=== PATIENT | male | born 1980 | race Caucasian/White ===

== ENCOUNTER 2018-11-04 22:22 | Observation (INO) ==
[2018-11-05] MEDS ORDERED: *HR* HYDROmorphone (PF) 1 MG/ML SYRINGE IVP ONE (01:43)
[2018-11-05] MEDS ORDERED: Ondansetron 4 MG/2 ML VIAL IVP ONE ×2 (01:43→04:47)
[2018-11-05] MEDS ORDERED: 0.9 % Sodium Chloride 1,000 ML IVC ONE (01:44)
[2018-11-05] MEDS ORDERED: Isovue-370 500 ML BOTTLE IVP ONE (01:58)
[2018-11-05 02:39] LABS: Basophils % 0.2 %; Eosinophils # 0.1 K/mcL (0.0-0.6); Eosinophils % 0.6 %; Hematocrit 41.1 % (37.5-50.1); Hemoglobin 13.7 g/dL (12.9-16.9); Immature Granulocytes % 0.2 % (0-4); Lymphocytes # 2.1 K/mcL (0.6-4.6); Lymphocytes % 19.8 %; Mean Corpuscular HGB Conc 33.3 g/dL (31.6-35.5); Mean Corpuscular Hemoglobin 30.4 pg (28.0-33.3); Mean Corpuscular Volume 91.1 fL (83.0-100.0); Mean Platelet Volume 9.9 fL (9.4-12.4); Monocytes # 0.7 K/mcL (0.0-1.3); Monocytes % 6.9 %; Neutrophils # 7.5 K/mcL (1.6-8.9); Platelet Count 236 K/mcL (140-400); Red Blood Count 4.51 M/mcL (4.19-5.50); Red Cell Distribution Width 12.6 % (11.5-14.5); Segmented Neutrophils % 72.3 %; White Blood Count 10.4 K/mcL (4.3-11.1)
[2018-11-05 02:47] LABS: INR 1.2; Prothrombin Time 13.2 Seconds (9.4-12.1)
[2018-11-05 02:59] LABS: Alanine Aminotransferase 21 Units/L (7-52); Albumin 3.7 g/dL (3.5-5.7); Albumin/Globulin Ratio 1.5 (1.1-2.2); Alkaline Phosphatase 53 Units/L (34-104); Amylase 48 Units/L (29-103); Aspartate Amino Transferase 18 Units/L (13-39); BUN/Creatinine Ratio 17 (6-26); Bilirubin,Direct 0.1 mg/dL (0.0-0.2); Bilirubin,Indirect 0.5 mg/dL (0.0-1.2); Bilirubin,Total 0.6 mg/dL (0.3-1.0); Blood Urea Nitrogen 15 mg/dL (6-20); Calcium 8.4 mg/dL (8.6-10.3); Carbon Dioxide 28 mEq/L (23-29); Chloride 103 mEq/L (98-107); Globulin 2.5 g/dL (2.4-3.5); Glucose 110 mg/dL (70-105); Lipase 18 Units/L (11-82); Osmolality,Calculated 287 (280-300); Potassium 3.7 mEq/L (3.5-5.1); Sodium 138 mEq/L (136-145); Total Protein 6.2 g/dL (6.4-8.9); eGFR For African Americans > 60 (> 60); eGFR For Non-African Americans > 60 (> 60)
--- NOTE | 2018-11-05 04:26 | Emergency Department Note ---
Disposition Clinical Impression: Diverticulitis Disposition: Admitted As Inpatient Condition: Good Referrals: NONE,PCP [Primary Care Provider] - Forms: ED Satisfaction Letter Time of Disposition: 04:48 Abdominal Pain HPI - General Chief Complaint: ED Nausea/Vomiting/Diarrhea Stated Complaint: NV/S/P hernia sx today sent by Dr. Walters Time Seen by Provider: 11/05/18 01:40 Source: patient Mode of arrival: ambulatory Limitations: no limitations Nursing Notes Reviewed: Yes Vital Signs Reviewed: Yes - History of Present Illness HPI Narrative: Alert and oriented nontoxic-appearing 30-year-old male presents for evaluation of a sudden onset of diffuse abdominal pain/cramping and nausea/vomiting. The patient underwent a umbilical hernia repair by Dr. Rendon yesterday morning. He states that yesterday afternoon/early evening, he began to notice abdominal discomfort. Pain worsened throughout the evening into this morning. He c ontacted Dr. Walters and was told to present to the emergency department for further evaluation. He denies any fever or chills. He has not yet had a bowel movement status post surgery. Pt Subjective Complaint: abdominal pain Onset (ago): hour(s) Consistency: Worsening Location: diffuse Pain Severity: severe Pain Scale: 10 Quality: aching Radiation: none Migration to: no migration Improves with: nothing Worsens with: nothing Context: recent surgery/procedure Associated symptoms: Reports: nausea, vomiting. Denies: diarrhea, fever, chills, hematochezia, melena, hematuria Treatments prior to arrival: none - Related Data Home Medications Medication Instructions Recorded Confirmed Oxycodone HCl/Acetaminophen 1 tab PO Q8H PRN 11/04/18 11/04/18 [Percocet 5-325 mg Tablet] Previous Rx's Medication Instructions Recorded Acetaminophen [Tylenol] 1,000 mg PO Q6HR 7 Days #60 tablet 11/04/18 Ibuprofen [Ibu] 800 mg PO 1-3XD 7 Days #30 tablet 11/04/18 Allergies Allergy/AdvReac Type Severity Reaction Status Date / Time atomoxetine AdvReac URINARY Verified 11/04/18 22:39 RETENTION bupropion AdvReac Confusion Verified 11/04/18 22:39 prednisone AdvReac Irritable Verified 11/04/18 22:39 All systems ED: reviewed and negative except as stated. Review of Systems: As Per HPI Constitutional: Denies: fever, chills, weakness, weight change Eyes: Denies: eye pain, eye discharge, vision change ENT ED: Denies: ear pain, throat pain, dental pain, hearing loss, epistaxis, congestion, dysphagia Cardiovascular: Denies: chest pain, palpitations, dyspnea on exertion, edema, syncope Respiratory: Denies: cough, dyspnea, wheezes, hemoptysis, stridor Gastrointestinal: Reports: as per HPI, abdominal pain, nausea, vomiting. Denies: diarrhea, constipation, hematemesis, melena, hematochezia Genitourinary: Denies: urgency, dysuria, frequency, hematuria Musculoskeletal: Denies: back pain, neck pain, arthralgia, myalgia Integumentary: Denies: rash, abrasion, lesions Neurological: Denies: headache, weakness, numbness, paresthesias, confusion, abnormal gait, vertigo Psychiatric: Denies: anxiety, depression, suicidal thoughts, homicidal thoughts, auditory hallucinations, visual hallucinations Endocrine: Denies: fatigue Hematological/Lymphatic: Denies: easy bleeding, easy bruising Allergic/Immunologic: Denies: facial swelling, urticaria Abdominal Pain PMH - Past Medical History Medical history: Reports: other Male Surgical History: Reports: cholecystectomy, herniorrhaphy, orthopedic, other, other Psychiatric history: Reports: anxiety - Social History Smoking status: Never smoker Alcohol use: Reports: occasionally Drug use: Reports: none Physical Exam - General Limitations: no limitations General appearance: alert - Head Head exam: atraumatic, normocephalic, normal inspection - Eye Eye exam: Present: normal appearance. Absent: conjunctival injection - ENT ENT exam: mucous membranes moist - Neck Neck exam: Present: normal inspection, full ROM - Chest Chest inspection: Present: normal inspection, symmetric chest wall rise - Respiratory Respiratory exam: Present: normal lung sounds bilaterally. Absent: respiratory distress, wheezes, stridor, accessory muscle use, prolonged expiratory phase - Cardiovascular Cardiovascular exam: Present: regular rate, normal rhythm, normal heart sounds - Abdominal Exam Abdominal exam: Present: soft, tenderness, normal bowel sounds, incision (Multiple laparoscopic incisions noted. Wounds are well approximated. No discharge or drainage. No associated erythema.). Absent: distention, guarding, rebound, rigidity Abdominal tenderness: Present: diffuse, moderate - Extremities Exam Extremities exam: Present: normal inspection, full ROM - Neurological Exam Neurological exam: Present: alert, oriented X3, normal gait - Psychiatric Psychiatric exam: Present: normal affect, normal mood - Skin Skin exam: Present: warm, dry Course Course Narrative: 0440: I spoke with Dr. Walters, general surgeon plumbing contractor. I have discussed the patient's case, presentation, and laboratory/radiology workup with him. He states that the patient does not need an NG tube however he requested patient be admitted to surgery services and began on IV Zosyn. - Reevaluation(s) Reevaluation #1: The patient states pain is significantly improved. He denies any need for additional analgesia. He does state that he is still slightly nauseated. He is in agreement with admission to the surgical services for observation and IV an tibiotics. Time: 04:47 Vital Signs Temperature 98.2 F 11/04/18 22:40 Pulse Rate 110 11/04/18 22:40 Respiratory Rate 11/04/18 22:40 Blood Pressure 144/80 11/04/18 22:40 O2 Sat by Pulse Oximetry 98 11/04/18 22:40 Temperature 98.2 F 11/04/18 22:40 Pulse Rate 110 11/04/18 22:40 Respiratory Rate 11/04/18 22:40 Blood Pressure 144/80 11/04/18 22:40 O2 Sat by Pulse Oximetry 98 11/04/18 22:40 Oxygen Delivery Oxygen Delivery Room Air Abdominal Pain - Medical Records Medical records reviewed: Yes I reviewed the patient's medical records. - Lab Data Lab results reviewed: Yes I reviewed the patient's lab results. Lab results narrative: Lab Results 11/05/18 11/05/18 11/05/18 Range/Units 02:26 02:26 02:26 WBC 10.4 (4.3-11.1) K/mcL RBC 4.51 (4.19-5.50) M/mcL Hgb 13.7 (12.9-16.9) g/dL Hct 41.1 (37.5-50.1) % MCV 91.1 (83.0-100.0) fL MCH 30.4 (28.0-33.3) pg MCHC 33.3 (31.6-35.5) g/dL RDW 12.6 (11.5-14.5) % Plt Count 236 (140-400) K/mcL MPV 9.9 (9.4-12.4) fL Immature Gran % 0.2 (0-4) % Seg Neutrophils % 72.3 % Lymphocytes % 19.8 % Monocytes % 6.9 % Eosinophils % 0.6 % Basophils % 0.2 % Neutrophils # 7.5 (1.6-8.9) K/mcL Lymphocytes # 2.1 (0.6-4.6) K/mcL Monocytes # 0.7 (0.0-1.3) K/mcL Eosinophils # 0.1 (0.0-0.6) K/mcL Basophils # 0.0 (0.0-0.2) K/mcL PT 13.2 H (9.4-12.1) Seconds INR 1.2 APTT 31.0 (26.0-36.0) Seconds Sodium 138 (136-145) mEq/L Potassium 3.7 (3.5-5.1) mEq/L Chloride 103 (98-107) mEq/L Carbon Dioxide 28 (23-29) mEq/L BUN 15 (6-20) mg/dL Creatinine 0.89 (0.70-1.30) mg/dL Est GFR ( Amer) > 60 (> 60) Est GFR (Non-Af Amer) > 60 (> 60) BUN/Creatinine Ratio 17 (6-26) Glucose 110 H (70-105) mg/dL Calculated Osmolality 287 (280-300) Lactic Acid (0.5-2.2) mmol/L Calcium 8.4 L (8.6-10.3) mg/dL Total Bilirubin 0.6 (0.3-1.0) mg/dL Direct Bilirubin 0.1 (0.0-0.2) mg/dL Indirect Bilirubin 0.5 (0.0-1.2) mg/dL AST 18 (13-39) Units/L ALT 21 (7-52) Units/L Alkaline Phosphatase 53 (34-104) Units/L Serum Total Protein 6.2 L (6.4-8.9) g/dL Albumin 3.7 (3.5-5.7) g/dL Globulin 2.5 (2.4-3.5) g/dL Albumin/Globulin Ratio 1.5 (1.1-2.2) Amylase 48 (29-103) Units/L Lipase 18 (11-82) Units/L 11/05/18 Range/Units 02:26 WBC (4.3-11.1) K/mcL RBC (4.19-5.50) M/mcL Hgb (12.9-16.9) g/dL Hct (37.5-50.1) % MCV (83.0-100.0) fL MCH (28.0-33.3) pg MCHC (31.6-35.5) g/dL RDW (11.5-14.5) % Plt Count (140-400) K/mcL MPV (9.4-12.4) fL Immature Gran % (0-4) % Seg Neutrophils % % Lymphocytes % % Monocytes % % Eosinophils % % Basophils % % Neutrophils # (1.6-8.9) K/mcL Lymphocytes # (0.6-4.6) K/mcL Monocytes # (0.0-1.3) K/mcL Eosinophils # (0.0-0.6) K/mcL Basophils # (0.0-0.2) K/mcL PT (9.4-12.1) Seconds INR APTT (26.0-36.0) Seconds Sodium (136-145) mEq/L Potassium (3.5-5.1) mEq/L Chloride (98-107) mEq/L Carbon Dioxide (23-29) mEq/L BUN (6-20) mg/dL Creatinine (0.70-1.30) mg/dL Est GFR ( Amer) (> 60) Est GFR (Non-Af Amer) (> 60) BUN/Creatinine Ratio (6-26) Glucose (70-105) mg/dL Calculated Osmolality (280-300) Lactic Acid 0.8 (0.5-2.2) mmol/L Calcium (8.6-10.3) mg/dL Total Bilirubin (0.3-1.0) mg/dL Direct Bilirubin (0.0-0.2) mg/dL Indirect Bilirubin (0.0-1.2) mg/dL AST (13-39) Units/L ALT (7-52) Units/L Alkaline Phosphatase (34-104) Units/L Serum Total Protein (6.4-8.9) g/dL Albumin (3.5-5.7) g/dL Globulin (2.4-3.5) g/dL Albumin/Globulin Ratio (1.1-2.2) Amylase (29-103) Units/L Lipase (11-82) Units/L Result diagrams: 11/05/18 02:26 11/05/18 02:26 Lab Results 11/05/18 11/05/18 11/05/18 Range/Units 02:26 02:26 02:26 WBC 10.4 (4.3-11.1) K/mcL RBC 4.51 (4.19-5.50) M/mcL Hgb 13.7 (12.9-16.9) g/dL Hct 41.1 (37.5-50.1) % MCV 91.1 (83.0-100.0) fL MCH 30.4 (28.0-33.3) pg MCHC 33.3 (31.6-35.5) g/dL RDW 12.6 (11.5-14.5) % Plt Count 236 (140-400) K/mcL MPV 9.9 (9.4-12.4) fL Immature Gran % 0.2 (0-4) % Seg Neutrophils % 72.3 % Lymphocytes % 19.8 % Monocytes % 6.9 % Eosinophils % 0.6 % Basophils % 0.2 % Neutrophils # 7.5 (1.6-8.9) K/mcL Lymphocytes # 2.1 (0.6-4.6) K/mcL Monocytes # 0.7 (0.0-1.3) K/mcL Eosinophils # 0.1 (0.0-0.6) K/mcL Basophils # 0.0 (0.0-0.2) K/mcL PT 13.2 H (9.4-12.1) Seconds INR 1.2 APTT 31.0 (26.0-36.0) Seconds Sodium 138 (136-145) mEq/L Potassium 3.7 (3.5-5.1) mEq/L Chloride 103 (98-107) mEq/L Carbon Dioxide 28 (23-29) mEq/L BUN 15 (6-20) mg/dL Creatinine 0.89 (0.70-1.30) mg/dL Est GFR ( Amer) > 60 (> 60) Est GFR (Non-Af Amer) > 60 (> 60) BUN/Creatinine Ratio 17 (6-26) Glucose 110 H (70-105) mg/dL Calculated Osmolality 287 (280-300) Lactic Acid (0.5-2.2) mmol/L Calcium 8.4 L (8.6-10.3) mg/dL Total Bilirubin 0.6 (0.3-1.0) mg/dL Direct Bilirubin 0.1 (0.0-0.2) mg/dL Indirect Bilirubin 0.5 (0.0-1.2) mg/dL AST 18 (13-39) Units/L ALT 21 (7-52) Units/L Alkaline Phosphatase 53 (34-104) Units/L Serum Total Protein 6.2 L (6.4-8.9) g/dL Albumin 3.7 (3.5-5.7) g/dL Globulin 2.5 (2.4-3.5) g/dL Albumin/Globulin Ratio 1.5 (1.1-2.2) Amylase 48 (29-103) Units/L Lipase 18 (11-82) Units/L 11/05/18 Range/Units 02:26 WBC (4.3-11.1) K/mcL RBC (4.19-5.50) M/mcL Hgb (12.9-16.9) g/dL Hct (37.5-50.1) % MCV (83.0-100.0) fL MCH (28.0-33.3) pg MCHC (31.6-35.5) g/dL RDW (11.5-14.5) % Plt Count (140-400) K/mcL MPV (9.4-12.4) fL Immature Gran % (0-4) % Seg Neutrophils % % Lymphocytes % % Monocytes % % Eosinophils % % Basophils % % Neutrophils # (1.6-8.9) K/mcL Lymphocytes # (0.6-4.6) K/mcL Monocytes # (0.0-1.3) K/mcL Eosinophils # (0.0-0.6) K/mcL Basophils # (0.0-0.2) K/mcL PT (9.4-12.1) Seconds INR APTT (26.0-36.0) Seconds Sodium (136-145) mEq/L Potassium (3.5-5.1) mEq/L Chloride (98-107) mEq/L Carbon Dioxide (23-29) mEq/L BUN (6-20) mg/dL Creatinine (0.70-1.30) mg/dL Est GFR ( Amer) (> 60) Est GFR (Non-Af Amer) (> 60) BUN/Creatinine Ratio (6-26) Glucose (70-105) mg/dL Calculated Osmolality (280-300) Lactic Acid 0.8 (0.5-2.2) mmol/L Calcium (8.6-10.3) mg/dL Total Bilirubin (0.3-1.0) mg/dL Direct Bilirubin (0.0-0.2) mg/dL Indirect Bilirubin (0.0-1.2) mg/dL AST (13-39) Units/L ALT (7-52) Units/L Alkaline Phosphatase (34-104) Units/L Serum Total Protein (6.4-8.9) g/dL Albumin (3.5-5.7) g/dL Globulin (2.4-3.5) g/dL Albumin/Globulin Ratio (1.1-2.2) Amylase (29-103) Units/L Lipase (11-82) Units/L - Radiology Data Radiology results reviewed: Yes I reviewed the patient's radiology results. Abdomen/Pelvis CT 11/05/18 04:07 IMPRESSION: Short-segment non perforated acute diverticulitis along the proximal sigmoid colon. Expected postsurgical changes following umbilical hernia repair, as detailed above. No intra-abdominal or superficial soft tissue abscess. Fluid-filled distended stomach and esophagus. Consider nasogastric tube decompression. D/ / Antonio Molina / Antonio Molina Interpreting Provider: Antonio Molina
[2018-11-05] MEDS ORDERED: Piperacillin/Tazobactam 3.375 GM in 0.9 % Sodium Chloride Mini Bag 100 ML IVPB ONE (04:46)
[2018-11-05] MEDS ORDERED: Ondansetron 4 MG/2 ML VIAL IVP PRN (05:09)
[2018-11-05] MEDS: 0.9 % Sodium Chloride 1,000 ML IVC SCH ×2 (07:57→18:01)
[2018-11-05] MEDS: Pantoprazole 40 MG VIAL IVP SCH (07:57)
[2018-11-05] MEDS: *HR* Heparin 5,000 UNIT/ML VIAL SQ SCH ×2 (07:57→18:01)
--- NOTE | 2018-11-05 09:53 | Acute Care Surgery H&P ---
Date of Encounter: 11/05/18 Time of Encounter: 09:51 Assessment and Plan (1) Diverticulitis Current Visit: Yes Status: Acute The assessment and plan as outlined above was discussed with the patient and/or family members who expressed understanding and agreement. All questions were answered. I explained to the patient that I do think it would be appropriate for us to continue with IV antibiotics and IV fluids. Will start full liquid diet and at least give him a 24-hour period of IV antibiotics. If he continues to do well we will further advance his diet consider and discharge home. History of Present Illness Chief complaint: Abdominal pain. Nausea and vomiting HPI: Mr. Linares is a 38 year old male who is status post a robotic umbilical hernia repair performed yesterday by Dr. Rendon who was discharged from the PACU yesterday who states that yesterday evening he started to have increasing abdominal pain with nausea and vomiting. Because of his intractable nausea vomiting symptoms he presented to the emergency room and was evaluated by CT scan which suggested a running consistent with his recent surgical procedure as well as likely inflammation around the sigmoid colon consistent with diverticulitis. Currently states that after being admitted and given medication he is no longer having any nausea symptoms. He does admit to some lower abdominal pain and periumbilical pain. Past Med Surg Social Fam HX - Past Medical History Medical history: other Additional medical history: diverticulosis. spleen issues Psychiatric history: anxiety - Past Surgical History Surgical History: cholecystectomy, orthopedic, other Additional surgical history: hiatal hernia repair - Social History Smoking Status: Never smoker Smokeless Tobacco Status: No Alcohol use: occasionally Drug use: none - Family History Mother History Unknown: Yes Father History Unknown: Yes Living Status: Still Living Medications and Allergies Ibuprofen [Ibu] 800 mg PO 1-3XD 7 Days #30 tablet 11/04/18 [Rx] Omeprazole [PriLOSEC] 20 mg PO DAILY 11/05/18 [History] Allergy/AdvReac Type Severity Reaction Status Date / Time atomoxetine AdvReac URINARY Verified 11/04/18 22:39 RETENTION bupropion AdvReac Confusion Verified 11/04/18 22:39 prednisone AdvReac Irritable Verified 11/04/18 22:39 Review of Systems All systems PM: reviewed and no additional remarkable complaints except as stated All systems PM: The remainder of the systems were reviewed and are negative General Surgery Exam Initial Vital Signs Temp Pulse Resp BP Pulse Ox 98.2 F 110 20 144/80 98 11/04/18 22:40 11/04/18 22:40 11/04/18 22:40 11/04/18 22:40 11/04/18 22:40 - General physical appearance well nourished, no distress - Respiratory normal expansion - Abdomen Abdomen general surgery: Present: bowel sounds present, soft, tender (Noted tenderness along the periumbilical and lower abdominal region) Results - Labs 11/05/18 02:26 11/05/18 02:26 Abnormal lab results PT 13.2 Seconds (9.4-12.1) H 11/05/18 02:26 Glucose 110 mg/dL (70-105) H 11/05/18 02:26 Calcium 8.4 mg/dL (8.6-10.3) L 11/05/18 02:26 Serum Total Protein 6.2 g/dL (6.4-8.9) L 11/05/18 02:26 Diabetes panel 11/05/18 Range/Units 02:26 Sodium 138 (136-145) mEq/L Potassium 3.7 (3.5-5.1) mEq/L Chloride 103 (98-107) mEq/L Carbon Dioxide 28 (23-29) mEq/L BUN 15 (6-20) mg/dL Creatinine 0.89 (0.70-1.30) mg/dL Glucose 110 H (70-105) mg/dL Calcium 8.4 L (8.6-10.3) mg/dL AST 18 (13-39) Units/L ALT 21 (7-52) Units/L Alkaline Phosphatase 53 (34-104) Units/L Albumin 3.7 (3.5-5.7) g/dL Calcium panel 11/05/18 Range/Units 02:26 Calcium 8.4 L (8.6-10.3) mg/dL Albumin 3.7 (3.5-5.7) g/dL Pituitary panel 11/05/18 Range/Units 02:26 Sodium 138 (136-145) mEq/L Potassium 3.7 (3.5-5.1) mEq/L Chloride 103 (98-107) mEq/L Carbon Dioxide 28 (23-29) mEq/L BUN 15 (6-20) mg/dL Creatinine 0.89 (0.70-1.30) mg/dL Glucose 110 H (70-105) mg/dL Calcium 8.4 L (8.6-10.3) mg/dL Adrenal panel 11/05/18 Range/Units 02:26 Sodium 138 (136-145) mEq/L Potassium 3.7 (3.5-5.1) mEq/L Chloride 103 (98-107) mEq/L Carbon Dioxide 28 (23-29) mEq/L BUN 15 (6-20) mg/dL Creatinine 0.89 (0.70-1.30) mg/dL Glucose 110 H (70-105) mg/dL Calcium 8.4 L (8.6-10.3) mg/dL Total Bilirubin 0.6 (0.3-1.0) mg/dL AST 18 (13-39) Units/L ALT 21 (7-52) Units/L Alkaline Phosphatase 53 (34-104) Units/L Albumin 3.7 (3.5-5.7) g/dL All other labs normal. - Imaging CT scan - abdomen: report reviewed, image reviewed (CT scan images and report personally reviewed by me. Noted faint stranding along the sigmoid colon possibly consistent with sigmoid diverticulitis. Surgical findings also consistent with recent umbilical hernia repair)
[2018-11-05] MEDS: Morphine Sulfate Oral CONC 10 MG/0.5 ML ORAL.SYG SL PRN ×3 (10:44→20:18)
[2018-11-05 13:08] LABS: Bilirubin,Urine Negative (Negative); Blood,Urine Negative (Negative); Clarity,Urine Clear (Clear); Color,Urine Yellow (Yellow); Glucose,Urine (UA) Normal (Normal); Ketones,Urine Negative (Negative); Leukocyte Esterase,Urine Negative (Negative); Nitrite,Urine Negative (Negative); PH,Urine 6.5 pH Units (5.0-8.0); Protein,Urine Negative (Neg-Trace); Specific Gravity,Urine 1.022 (1.010-1.025); Urobilinogen,Urine Normal (Normal)
[2018-11-05] MEDS: Piperacillin/Tazobactam 3.375 GM in 0.9 % Sodium Chloride Mini Bag 100 ML IVPB SCH (15:58)
[2018-11-05] MEDS: *HR* LORazepam 2 MG/ML VIAL IVP PRN (22:08)
[2018-11-06] MEDS: Piperacillin/Tazobactam 3.375 GM in 0.9 % Sodium Chloride Mini Bag 100 ML IVPB SCH ×2 (00:17→07:32)
[2018-11-06] MEDS: Morphine Sulfate Oral CONC 10 MG/0.5 ML ORAL.SYG SL PRN ×2 (00:17→07:32)
[2018-11-06] MEDS: *HR* LORazepam 2 MG/ML VIAL IVP PRN ×2 (04:06→10:30)
[2018-11-06] MEDS: 0.9 % Sodium Chloride 1,000 ML IVC SCH (04:06)
[2018-11-06] MEDS: *HR* Heparin 5,000 UNIT/ML VIAL SQ SCH (06:57)
[2018-11-06] MEDS: Pantoprazole 40 MG VIAL IVP SCH (06:57)
--- NOTE | 2018-11-06 09:42 | Discharge Summary ---
Orders not resulted at time of discharge: Pending orders 11/05/18 02:26 Blood Culture [Culture,Blood] [] Stat Date of Encounter: 11/06/18 Time of Encounter: 09:40 - Discharge Diagnosis (1) Diverticulitis Priority: Primary Status: Acute General Surgery Exam Initial Vital Signs Temp Pulse Resp BP Pulse Ox 98.2 F 110 20 144/80 98 11/04/18 22:40 11/04/18 22:40 11/04/18 22:40 11/04/18 22:40 11/04/18 22:40 - Eyes PERRL, normal ocular movement - Abdomen Abdomen general surgery: Present: soft, tender (mild lower and periumbilical tenderness to palpation) - Incision Incision: Present: clean and dry, intact - Hospital Course Hospital course: Mr. Linares is a 38 year old male n a robotic umbilical hernia repair was discharged postoperatively he presented to the emergency room 24 hours later with symptoms of increasing abdominal pain and nausea vomiting. He CAT scan showing signs of recent hernia repair but also showed signs of faint haziness around the sigmoid colon consistent with diverticulitis. He was admitted with IV antibiotics and medication for nausea. Overall improved and was able to tolerate a solid diet on the second hospital day and was discharged home with oral antibiotics and pain medication and instructions to follow-up with Dr. Rendon during his regularly scheduled post op appointment. Time spent discussing smoking cessation with patient: 3 to 10 minutes - Time Spent with Patient Total time spent providing and/or coordinating discharge services: Less than 30 minutes - Discharge Medications Prescriptions: New Amoxicillin/Clavulanate [Augmentin] 875 mg PO BIDWM 10 Days #20 tablet OxyCODONE/APAP 5/325 [Percocet 5/325 MG] 1 each PO Q6HR PRN 5 Days #20 tablet PRN Reason: Pain No Action Omeprazole [PriLOSEC] 20 mg PO DAILY Ibuprofen [Ibu] 800 mg PO 1-3XD PRN PRN Reason: Pain Home Medications: Omeprazole [PriLOSEC] 20 mg PO DAILY 11/05/18 [History] Amoxicillin/Clavulanate [Augmentin] 875 mg PO BIDWM 10 Days #20 tablet 11/06/18 [Rx] Ibuprofen [Ibu] 800 mg PO 1-3XD PRN 11/06/18 [History] OxyCODONE/APAP 5/325 [Percocet 5/325 MG] 1 each PO Q6HR PRN 5 Days #20 tablet 11/06/18 [Rx] Allergies/Adverse Reactions: Allergy/AdvReac Type Severity Reaction Status Date / Time atomoxetine AdvReac URINARY Verified 11/06/18 10:28 RETENTION bupropion AdvReac Confusion Verified 11/06/18 10:28 prednisone AdvReac Irritable Verified 11/06/18 10:28 Date of admission: 11/05/18 05:01 Primary care physician: PCP NONE Labs on day of discharge: Labs from last 24 hours 11/05/18 12:45 Urine Color Yellow Urine Clarity Clear Urine pH 6.5 Ur Specific [place] 1.022 Urine Protein Negative Urine Glucose (UA) Normal Urine Ketones Negative Urine Blood Negative Urine Nitrite Negative Urine Bilirubin Negative Urine Urobilinogen Normal Ur Leukocyte Esterase Negative Ur Culture Indicated? NO Preliminary micro results at discharge 11/05/18 02:26 Blood Culture - Preliminary Peripheral Venipuncture Culture is incubating and being continuously monitored for growth. Final report to follow. 11/05/18 02:26 Blood Culture - Preliminary Peripheral Venipuncture Culture is incubating and being continuously monitored for growth. Final report to follow. - Impressions ITS Impressions Abdomen/Pelvis CT 11/05/18 04:07 IMPRESSION: Short-segment non perforated acute diverticulitis along the proximal sigmoid colon. Expected postsurgical changes following umbilical hernia repair, as detailed above. No intra-abdominal or superficial soft tissue abscess. Fluid-filled distended stomach and esophagus. Consider nasogastric tube decompression. D/ / Antonio Molina / Antonio Molina Interpreting Provider: Antonio Molina - Patient Status Disposition: Home, Self-Care Condition: Good Overall status at discharge: patient is progressing back to baseline - Discharge Instructions Instructions: Diverticulitis (DC) Follow Up With: NONE,PCP [Primary Care Provider] -
[2018-11-06 10:20] VITALS: BP 127/79
== END 2018-11-06 12:35 | disposition home or self-care (01) ==
LOC: EMEROOARM 22:22 → 3ANU 22:22
PROVIDERS: ADMIT Surgery; ATTEND Surgery

== ENCOUNTER 2019-01-03 07:18 | Inpatient (IN) ==
[2019-01-03] MEDS ORDERED: Ondansetron 4 MG/2 ML VIAL IVP ONE (07:29)
[2019-01-03] MEDS ORDERED: 0.9 % Sodium Chloride 1,000 ML IVC ONE (07:29)
[2019-01-03] MEDS ORDERED: *HR* HYDROmorphone (PF) 1 MG/ML SYRINGE IVP ONE ×2 (07:29→08:27)
[2019-01-03 08:29] LABS: Basophils # 0.1 K/mcL (0.0-0.2); Basophils % 0.5 %; Eosinophils # 0.3 K/mcL (0.0-0.6); Eosinophils % 2.3 %; Hematocrit 47.3 % (37.5-50.1); Hemoglobin 16.8 g/dL (12.9-16.9); Immature Granulocytes % 0.4 % (0-4); Lymphocytes # 3.4 K/mcL (0.6-4.6); Lymphocytes % 28.8 %; Mean Corpuscular HGB Conc 35.5 g/dL (31.6-35.5); Mean Corpuscular Hemoglobin 31.2 pg (28.0-33.3); Mean Corpuscular Volume 87.8 fL (83.0-100.0); Mean Platelet Volume 9.9 fL (9.4-12.4); Monocytes # 0.8 K/mcL (0.0-1.3); Neutrophils # 7.1 K/mcL (1.6-8.9); Platelet Count 331 K/mcL (140-400); Red Blood Count 5.39 M/mcL (4.19-5.50); Red Cell Distribution Width 12.7 % (11.5-14.5); White Blood Count 11.6 K/mcL (4.3-11.1)
[2019-01-03 08:49] LABS: Alanine Aminotransferase 16 Units/L (7-52); Albumin 4.4 g/dL (3.5-5.7); Albumin/Globulin Ratio 1.4 (1.1-2.2); Alkaline Phosphatase 80 Units/L (34-104); Aspartate Amino Transferase 19 Units/L (13-39); BUN/Creatinine Ratio 19 (6-26); Bilirubin,Total 0.4 mg/dL (0.3-1.0); Blood Urea Nitrogen 16 mg/dL (6-20); Calcium 9.6 mg/dL (8.6-10.3); Carbon Dioxide 25 mEq/L (23-29); Chloride 104 mEq/L (98-107); Globulin 3.2 g/dL (2.4-3.5); Glucose 106 mg/dL (70-105); Osmolality,Calculated 290 (280-300); Potassium 4.3 mEq/L (3.5-5.1); Sodium 139 mEq/L (136-145); Total Protein 7.6 g/dL (6.4-8.9); eGFR For African Americans > 60 (> 60); eGFR For Non-African Americans > 60 (> 60)
[2019-01-03] MEDS ORDERED: Naloxone 0.4 MG/ML INJ IVP PRN (09:28)
[2019-01-03 11:11] LABS: Bilirubin,Urine Small (Negative); Blood,Urine Negative (Negative); Clarity,Urine Clear (Clear); Color,Urine Yellow (Yellow); Glucose,Urine (UA) Normal (Normal); Ketones,Urine Negative (Negative); Leukocyte Esterase,Urine Negative (Negative); Nitrite,Urine Negative (Negative); Protein,Urine Trace mg/dL (Neg-Trace); Specific Gravity,Urine > 1.030 (1.010-1.025); Urobilinogen,Urine Normal (Normal)
[2019-01-03] MEDS: MetroNIDAZOLE 500 MG/100 ML 500 MG/100 ML BAG IVPB SCH ×2 (11:21→17:16)
[2019-01-03] MEDS: 0.9 % Sodium Chloride 1,000 ML IVC SCH ×2 (11:21→19:24)
[2019-01-03] MEDS: *HR* Promethazine 25 MG/ML VIAL IVP PRN ×2 (12:31→21:47)
[2019-01-03 13:34] LABS: Adenovirus F 40/41 PCR Not detected (Not detect); Astrovirus PCR Not detected (Not detect); C.difficile Toxin A/B Gene PCR Not detected (Not detect); Campylobacter by PCR Not detected (Not detect); Cryptosporidium by PCR Not detected (Not detect); Cyclospora cayetanensis PCR Not detected (Not detect); E. coli O157 by PCR Not detected (Not detect); Entamoeba histolytica PCR Not detected (Not detect); Enteroaggregative E.coli(EAEC) Not detected (Not detect); Enteropathogenic E.coli(EPEC) Not detected (Not detect); Enterotoxigenic E.coli (ETEC) Not detected (Not detect); Giardia lamblia PCR Not detected (Not detect); Norovirus GI/GII PCR Not detected (Not detect); Plesiomonas shigelloides PCR Not detected (Not detect); Rotavirus A PCR Not detected (Not detect); Salmonella PCR Not detected (Not detect); Sapovirus PCR Not detected (Not detect); Shig/EnteroinvasiveE coli EIEC Not detected (Not detect); Shigalike tox-prod E coli STEC Not detected (Not detect); Vibrio PCR Not detected (Not detect); Vibrio cholerae PCR Not detected (Not detect); Yersinia enterocolitica PCR Not detected (Not detect)
[2019-01-03] MEDS: (Doxepin Hcl 10 MG) PO SCH (19:31)
[2019-01-03] MEDS: Ketorolac 15 MG/ML VIAL IVP PRN (19:34)
[2019-01-03] MEDS: *HR* Heparin 5,000 UNIT/ML VIAL SQ SCH (22:41)
[2019-01-04] MEDS: MetroNIDAZOLE 500 MG/100 ML 500 MG/100 ML BAG IVPB SCH ×3 (01:05→17:09)
[2019-01-04] MEDS: Ketorolac 15 MG/ML VIAL IVP PRN ×2 (03:42→20:18)
[2019-01-04 04:55] LABS: BUN/Creatinine Ratio 14 (6-26); Blood Urea Nitrogen 13 mg/dL (6-20); Calcium 8.7 mg/dL (8.6-10.3); Carbon Dioxide 30 mEq/L (23-29); Chloride 103 mEq/L (98-107); Glucose 95 mg/dL (70-105); Magnesium 1.6 mg/dL (1.6-2.6); Osmolality,Calculated 288 (280-300); Phosphorous 3.4 mg/dL (2.7-4.5); Potassium 4.2 mEq/L (3.5-5.1); Sodium 139 mEq/L (136-145); eGFR For African Americans > 60 (> 60); eGFR For Non-African Americans > 60 (> 60)
[2019-01-04] MEDS: *HR* Heparin 5,000 UNIT/ML VIAL SQ SCH ×2 (05:10→18:39)
[2019-01-04] MEDS: 0.9 % Sodium Chloride 1,000 ML IVC SCH (05:13)
[2019-01-04 05:26] LABS: Basophils % 0.2 %; Eosinophils # 0.5 K/mcL (0.0-0.6); Eosinophils % 4.9 %; Hemoglobin 13.9 g/dL (12.9-16.9); Immature Granulocytes % 0.4 % (0-4); Lymphocytes # 3.2 K/mcL (0.6-4.6); Lymphocytes % 33.5 %; Mean Corpuscular HGB Conc 33.1 g/dL (31.6-35.5); Mean Corpuscular Hemoglobin 30.6 pg (28.0-33.3); Mean Corpuscular Volume 92.5 fL (83.0-100.0); Mean Platelet Volume 9.8 fL (9.4-12.4); Monocytes # 0.6 K/mcL (0.0-1.3); Monocytes % 6.6 %; Neutrophils # 5.2 K/mcL (1.6-8.9); Platelet Count 231 K/mcL (140-400); Red Blood Count 4.54 M/mcL (4.19-5.50); Red Cell Distribution Width 12.7 % (11.5-14.5); Segmented Neutrophils % 54.4 %; White Blood Count 9.6 K/mcL (4.3-11.1)
[2019-01-04] MEDS: *HR* Promethazine 25 MG/ML VIAL IVP PRN ×2 (06:11→18:43)
[2019-01-04] MEDS: (Doxepin Hcl 10 MG) PO SCH ×2 (09:27→22:39)
[2019-01-05] MEDS: MetroNIDAZOLE 500 MG/100 ML 500 MG/100 ML BAG IVPB SCH ×3 (01:51→18:18)
[2019-01-05] MEDS: *HR* Heparin 5,000 UNIT/ML VIAL SQ SCH ×2 (04:47→18:17)
[2019-01-05 05:21] LABS: Basophils % 0.4 %; Eosinophils # 0.5 K/mcL (0.0-0.6); Eosinophils % 7.2 %; Hematocrit 40.8 % (37.5-50.1); Hemoglobin 14.3 g/dL (12.9-16.9); Immature Granulocytes % 0.6 % (0-4); Lymphocytes # 2.7 K/mcL (0.6-4.6); Lymphocytes % 36.6 %; Mean Corpuscular Hemoglobin 31.2 pg (28.0-33.3); Mean Corpuscular Volume 88.9 fL (83.0-100.0); Monocytes # 0.6 K/mcL (0.0-1.3); Monocytes % 7.6 %; Neutrophils # 3.5 K/mcL (1.6-8.9); Platelet Count 248 K/mcL (140-400); Red Blood Count 4.59 M/mcL (4.19-5.50); Red Cell Distribution Width 12.3 % (11.5-14.5); Segmented Neutrophils % 47.6 %; White Blood Count 7.3 K/mcL (4.3-11.1)
[2019-01-05 05:34] LABS: BUN/Creatinine Ratio 8 (6-26); Blood Urea Nitrogen 7 mg/dL (6-20); Calcium 8.6 mg/dL (8.6-10.3); Carbon Dioxide 28 mEq/L (23-29); Chloride 106 mEq/L (98-107); Glucose 91 mg/dL (70-105); Magnesium 1.8 mg/dL (1.6-2.6); Osmolality,Calculated 284 (280-300); Phosphorous 3.9 mg/dL (2.7-4.5); Sodium 138 mEq/L (136-145); eGFR For African Americans > 60 (> 60); eGFR For Non-African Americans > 60 (> 60)
[2019-01-05] MEDS: *HR* Promethazine 25 MG/ML VIAL IVP PRN (23:46)
[2019-01-06] MEDS: MetroNIDAZOLE 500 MG/100 ML 500 MG/100 ML BAG IVPB SCH (01:23)
[2019-01-06] MEDS: *HR* Heparin 5,000 UNIT/ML VIAL SQ SCH (05:42)
[2019-01-06 06:14] LABS: Basophils % 0.2 %; Eosinophils # 0.6 K/mcL (0.0-0.6); Eosinophils % 7.2 %; Hematocrit 42.7 % (37.5-50.1); Hemoglobin 14.6 g/dL (12.9-16.9); Immature Granulocytes % 0.4 % (0-4); Lymphocytes # 2.6 K/mcL (0.6-4.6); Lymphocytes % 31.2 %; Mean Corpuscular HGB Conc 34.2 g/dL (31.6-35.5); Mean Corpuscular Hemoglobin 31.3 pg (28.0-33.3); Mean Corpuscular Volume 91.4 fL (83.0-100.0); Mean Platelet Volume 9.8 fL (9.4-12.4); Monocytes # 0.6 K/mcL (0.0-1.3); Monocytes % 6.9 %; Neutrophils # 4.5 K/mcL (1.6-8.9); Platelet Count 243 K/mcL (140-400); Red Blood Count 4.67 M/mcL (4.19-5.50); Red Cell Distribution Width 12.1 % (11.5-14.5); Segmented Neutrophils % 54.1 %; White Blood Count 8.2 K/mcL (4.3-11.1)
[2019-01-06 06:34] LABS: BUN/Creatinine Ratio 13 (6-26); Blood Urea Nitrogen 12 mg/dL (6-20); Calcium 8.8 mg/dL (8.6-10.3); Carbon Dioxide 27 mEq/L (23-29); Chloride 106 mEq/L (98-107); Glucose 112 mg/dL (70-105); Magnesium 1.9 mg/dL (1.6-2.6); Osmolality,Calculated 293 (280-300); Phosphorous 3.7 mg/dL (2.7-4.5); Potassium 3.9 mEq/L (3.5-5.1); Sodium 141 mEq/L (136-145); eGFR For African Americans > 60 (> 60); eGFR For Non-African Americans > 60 (> 60)
[2019-01-06 07:35] VITALS: BP 116/73
== END 2019-01-06 10:25 | disposition home or self-care (01) | DRG 392 ==
LOC: CDU 07:18 → EMEROOARM 07:18 → CDU 09:56 → 3ANU 20:46
PROVIDERS: ADMIT Internal Medicine; ATTEND Internal Medicine

== ENCOUNTER 2020-01-05 12:09 | Observation (INO) ==
[2020-01-05] MEDS ORDERED: 0.9 % Sodium Chloride 1,000 ML IVC ONE (13:11)
[2020-01-05] MEDS ORDERED: Ondansetron 4 MG/2 ML VIAL IVP ONE ×2 (13:12→19:04)
[2020-01-05 13:29] LABS: Basophils % 0.2 %; Eosinophils # 0.2 K/mcL (0.0-0.6); Eosinophils % 0.8 %; Hematocrit 54.4 % (37.5-50.1); Hemoglobin 18.6 g/dL (12.9-16.9); Immature Granulocytes % 0.6 % (0-4); Lymphocytes # 2.6 K/mcL (0.6-4.6); Mean Corpuscular HGB Conc 34.2 g/dL (31.6-35.5); Mean Corpuscular Volume 93.5 fL (83.0-100.0); Mean Platelet Volume 10.2 fL (9.4-12.4); Monocytes # 1.2 K/mcL (0.0-1.3); Neutrophils # 19.4 K/mcL (1.6-8.9); Platelet Count 389 K/mcL (140-400); Red Blood Count 5.82 M/mcL (4.19-5.50); Red Cell Distribution Width 12.4 % (11.5-14.5); Segmented Neutrophils % 82.4 %; White Blood Count 23.5 K/mcL (4.3-11.1)
[2020-01-05 13:34] LABS: Alanine Aminotransferase 22 Units/L (7-52); Albumin 4.9 g/dL (3.5-5.7); Albumin/Globulin Ratio 1.6 (1.1-2.2); Alkaline Phosphatase 86 Units/L (34-104); Aspartate Amino Transferase 24 Units/L (13-39); BUN/Creatinine Ratio 16 (6-26); Bilirubin,Direct 0.1 mg/dL (0.0-0.2); Bilirubin,Indirect 0.6 mg/dL (0.0-1.0); Bilirubin,Total 0.7 mg/dL (0.3-1.0); Blood Urea Nitrogen 16 mg/dL (6-20); Calcium 9.9 mg/dL (8.6-10.3); Carbon Dioxide 32 mEq/L (23-29); Chloride 103 mEq/L (98-107); Globulin 3.1 g/dL (2.4-3.5); Glucose 124 mg/dL (70-105); Lipase 19 Units/L (11-82); Osmolality,Calculated 297 (280-300); Potassium 3.9 mEq/L (3.5-5.1); Sodium 142 mEq/L (136-145); eGFR For African Americans > 60 (> 60); eGFR For Non-African Americans > 60 (> 60)
[2020-01-05] MEDS ORDERED: Ketorolac 30 MG/ML VIAL IVP ONE (13:40)
[2020-01-05] MEDS ORDERED: *HR* FentaNYL (PF) 100 MCG/2 ML VIAL IVP ONE (14:09)
[2020-01-05] MEDS ORDERED: Isovue-370 500 ML BOTTLE IVP ONE (14:24)
[2020-01-05] MEDS ORDERED: 0.9 % Sodium Chloride 1,000 ML IV ONE (15:07)
[2020-01-05] MEDS ORDERED: Piperacillin/Tazobactam 3.375 GM in 0.9 % Sodium Chloride Mini Bag 100 ML IVPB ONE (15:07)
[2020-01-05] MEDS ORDERED: Acetaminophen 325 MG TABLET PO PRN (16:27)
[2020-01-05] MEDS ORDERED: Naloxone 0.4 MG/ML INJ IVP PRN (16:27)
[2020-01-05] MEDS ORDERED: Ondansetron 4 MG/2 ML VIAL IVP PRN (16:27)
[2020-01-05 17:17] LABS: C-Reactive Protein < 5 mg/L (Less than 10)
[2020-01-05] MEDS: Ringers Solution, Lactated 1,000 ML IVC SCH (17:21)
[2020-01-05] MEDS: *HR* HYDROmorphone (PF) 1 MG/ML SYRINGE IVP PRN (19:06)
[2020-01-05 20:18] LABS: Amphetamine Screen,Urine Negative ng/mL (Cutoff=1000); Barbiturate Screen,Urine Negative ng/mL (Cutoff=200); Benzodiazepines Screen,Urine Negative ng/mL (Cutoff=200); Cannabinoid Screen,Urine Negative ng/mL (Cutoff = 50); Phencyclidine Screen,Urine Negative ng/mL (Cutoff=25)
[2020-01-05 20:29] LABS: Bilirubin,Urine Negative (Negative); Blood,Urine Negative (Negative); Clarity,Urine Clear (Clear); Color,Urine Light-Orange (Yellow); Glucose,Urine (UA) Normal (Normal); Ketones,Urine Trace mg/dL (Negative); Leukocyte Esterase,Urine Negative (Negative); Mucus,Urine Many per lpf (None-Few); Nitrite,Urine Negative (Negative); Protein,Urine 30 mg/dL (Neg-Trace); RBC,Urine 0-3 per hpf (0-3); Specific Gravity,Urine > 1.030 (1.010-1.025); Urobilinogen,Urine Normal (Normal); WBC,Urine 0-3 per hpf (0-3)
[2020-01-05 22:26] LABS: Cocaine Screen,Urine Positive ng/mL (Cutoff= 300); Opiate Screen,Urine Positive ng/mL (Cutoff=300)
[2020-01-05] MEDS: Piperacillin/Tazobactam 3.375 GM in 0.9 % Sodium Chloride Mini Bag 100 ML IVPB SCH (23:15)
[2020-01-05] MEDS: Ondansetron 4 MG/2 ML VIAL IVP SCH (23:16)
[2020-01-06] MEDS ORDERED: Ondansetron 4 MG/2 ML VIAL IVP SCH
[2020-01-06] MEDS: Ringers Solution, Lactated 1,000 ML IVC SCH (02:00)
[2020-01-06] MEDS: Ondansetron 4 MG/2 ML VIAL IVP SCH ×2 (06:15→11:46)
[2020-01-06] MEDS: *HR* HYDROmorphone (PF) 1 MG/ML SYRINGE IVP PRN (06:20)
[2020-01-06 06:37] LABS: Basophils % 0.2 %; Eosinophils # 0.3 K/mcL (0.0-0.6); Eosinophils % 3.9 %; Hematocrit 41.4 % (37.5-50.1); Immature Granulocytes % 0.2 % (0-4); Lymphocytes # 2.6 K/mcL (0.6-4.6); Lymphocytes % 31.1 %; Mean Corpuscular HGB Conc 33.6 g/dL (31.6-35.5); Mean Corpuscular Volume 95.2 fL (83.0-100.0); Mean Platelet Volume 9.9 fL (9.4-12.4); Monocytes # 0.5 K/mcL (0.0-1.3); Monocytes % 6.2 %; Neutrophils # 4.8 K/mcL (1.6-8.9); Platelet Count 228 K/mcL (140-400); Red Blood Count 4.35 M/mcL (4.19-5.50); Red Cell Distribution Width 12.5 % (11.5-14.5); Segmented Neutrophils % 58.4 %
[2020-01-06 06:38] LABS: Hemoglobin 13.9 g/dL (12.9-16.9); White Blood Count 8.2 K/mcL (4.3-11.1)
[2020-01-06 06:59] LABS: BUN/Creatinine Ratio 14 (6-26); Blood Urea Nitrogen 14 mg/dL (6-20); Calcium 8.8 mg/dL (8.6-10.3); Carbon Dioxide 31 mEq/L (23-29); Chloride 108 mEq/L (98-107); Glucose 94 mg/dL (70-105); Magnesium 1.8 mg/dL (1.6-2.6); Osmolality,Calculated 294 (280-300); Sodium 142 mEq/L (136-145); eGFR For African Americans > 60 (> 60); eGFR For Non-African Americans > 60 (> 60)
[2020-01-06] MEDS: Piperacillin/Tazobactam 3.375 GM in 0.9 % Sodium Chloride Mini Bag 100 ML IVPB SCH (09:08)
[2020-01-06 11:48] VITALS: BP 105/66
== END 2020-01-06 12:11 | disposition home or self-care (01) ==
LOC: EMEROOARM 12:09 → 3ANU 12:09 → SUATTDRO 16:25 → 3ANU 17:25
PROVIDERS: ADMIT Pharmacist; ATTEND Pharmacist